=== PATIENT | male | born 1950 | race Caucasian/White ===

== ENCOUNTER 2023-12-14 17:12 | Inpatient (IN) | payer MEDICARE, MEDICAID ==
[~2023-12-14] VITALS: Ht 162.6 cm; Wt 64.0 kg
[~2023-12-14 17:12] MED LIST: ATOR40TA70 PO; BENA40TA91 PO; HYDR25TA PO
[2023-12-14] MEDS: SODIUM CHLORIDE 0.9% 1000ML BAG (SEPSIS BOLUS) IV ONE (17:49)
[2023-12-14] MEDS: VANCOMYCIN 1G PREMIX 200 ML IV ONE (18:10)
[2023-12-14] MEDS: PIPERACILLIN/TAZO 3.375G/50ML 50 ML IV ONE (18:10)
[2023-12-14] MEDS: ACETAMINOPHEN 325MG TABLET PO ONE (18:12)
[2023-12-14 18:17] LABS: DIFFERENTIAL COMMENT 1; HEMATOCRIT. 36.3 % (42.0-52.0); HEMOGLOBIN. 11.3 g/dL (14.0-18.0); MEAN CORPUSCULAR HEMOGLOBIN 29.9 pg (28.0-32.0); MEAN CORPUSCULAR HGB CONC 31.2 g/dL (31.0-37.0); MEAN CORPUSCULAR VOLUME 95.6 fL (80.0-94.0); MEAN PLATELET VOLUME 8.3 fl (7.4-10.4); PLATELET 114 x1000/uL (130-400); RED BLOOD CELL COUNT 3.79 mill/uL (4.7-6.1); RED CELL DISTRIBUTION WIDTH 21.1 % (11.6-14.6); WHITE BLOOD COUNT 12.2 x1000/uL (4.5-11.0)
[2023-12-14 18:21] LABS: CHLORIDE 96 mEq/L (98-107); POTASSIUM 3.5 mEq/L (3.5-5.1); SODIUM 132 mEq/L (136-145)
[2023-12-14 18:22] LABS: CALCIUM 8.6 mg/dL (8.7-10.4); CARBON DIOXIDE 28 mEq/L (21-32)
[2023-12-14 18:27] LABS: GLUCOSE 161 mg/dL (70-105); UREA NITROGEN BLOOD 41 mg/dL (9-23)
[2023-12-14 18:28] LABS: TROPONIN I HIGH SENSITIVITY 39 ng/L (3.0-53)
[2023-12-14 18:29] LABS: ALANINE AMINOTRANSFERASE 15 IU/L (10-49); ALBUMIN 3.3 g/dL (3.2-4.8); ASPARTATE AMINOTRANSFERASE 27 IU/L (<34); BILIRUBIN TOTAL 0.5 mg/dL (0.1-1.0)
[2023-12-14 18:34] LABS: CREATININE 6.7 mg/dL (0.6-1.3)
[2023-12-14 18:49] LABS: INR 1.2; PROTHROMBIN TIME 12.7 sec (9.6-11.0)
[2023-12-14 19:46] LABS: ANISOCYTOSIS 2+; PLATELET ESTIMATE DECREASED
[2023-12-14] MEDS ORDERED: NA PHOS,M-B/NA PHOS,DI-BA ENEMA 118ML PR PRN (23:30)
[2023-12-14] MEDS ORDERED: IPRATROPIUM/ALBUTEROL 0.5-3(2.5)MG/3ML NEB HHN PRN (23:30)
[2023-12-14] MEDS ORDERED: MAGNESIUM/ALUMINUM HYDROXIDE/SIMETHICONE 30ML UDC PO PRN (23:30)
[2023-12-14] MEDS ORDERED: ACETAMINOPHEN 325MG TABLET PO PRN (23:30)
[2023-12-15] VITALS (16 sets, daily range): BP systolic 115–147; BP diastolic 48–80; PULSE 78–110; RESP 16–20; TEMP 36.28068–37.00296; O2SAT 92–99
[2023-12-15] MEDS: HYDROCODONE/ACETAMINOPHEN 5/325MG TABLET PO PRN (03:50)
[2023-12-15] MEDS ORDERED: DEXTROSE 50% WATER 50ML SYRINGE IV PRN (04:15)
[2023-12-15 05:24] LABS: HEMATOCRIT. 34.7 % (42.0-52.0); HEMOGLOBIN. 11.1 g/dL (14.0-18.0); MEAN CORPUSCULAR HEMOGLOBIN 29.8 pg (28.0-32.0); MEAN CORPUSCULAR VOLUME 93.1 fL (80.0-94.0); MEAN PLATELET VOLUME 8.7 fl (7.4-10.4); PLATELET 97 x1000/uL (130-400); RED BLOOD CELL COUNT 3.73 mill/uL (4.7-6.1); RED CELL DISTRIBUTION WIDTH 20.6 % (11.6-14.6); WHITE BLOOD COUNT 14.9 x1000/uL (4.5-11.0)
[2023-12-15] MEDS: CLINDAMYCIN 600MG PREMIX 50 ML IV SCH (05:34)
[2023-12-15] MEDS: LEVOFLOXACIN 750MG PREMIX 150 ML IV NR (05:35)
[2023-12-15] MEDS: BLOOD SUGAR DIAGNOSTIC STRIP TEST SCH (05:35)
[2023-12-15 05:53] LABS: DIFFERENTIAL COMMENT 1
[2023-12-15 05:59] LABS: CALCIUM 9.1 mg/dL (8.7-10.4); CARBON DIOXIDE 26 mEq/L (21-32); CHLORIDE 97 mEq/L (98-107); POTASSIUM 4.2 mEq/L (3.5-5.1); SODIUM 133 mEq/L (136-145)
[2023-12-15 06:02] LABS: TROPONIN I HIGH SENSITIVITY 41 ng/L (3.0-53)
[2023-12-15 06:04] LABS: ALBUMIN 3.2 g/dL (3.2-4.8)
[2023-12-15 06:05] LABS: GLUCOSE 75 mg/dL (70-105); TRIGLYCERIDE 76 mg/dL (0-150); UREA NITROGEN BLOOD 44 mg/dL (9-23)
[2023-12-15 06:06] LABS: LDL CHOLESTEROL 17 mg/dL (5-100)
[2023-12-15 06:07] LABS: CHOLESTEROL 65 mg/dL (<200); HDL CHOLESTEROL 26 mg/dL (>55)
[2023-12-15 06:16] LABS: CREATININE 7.4 mg/dL (0.6-1.3)
[2023-12-15] MEDS: INSULIN LISPRO 100 UNITS/ML SUBCUT SCH (06:25)
[2023-12-15] MEDS ORDERED: LEVOFLOXACIN 750MG PREMIX 150 ML IV NR (06:30)
[2023-12-15 08:29] LABS: ALANINE AMINOTRANSFERASE 18 IU/L (10-49); ALBUMIN 3.2 g/dL (3.2-4.8); ASPARTATE AMINOTRANSFERASE 35 IU/L (<34); BILIRUBIN DIRECT 0.3 mg/dL (<=3.0); BILIRUBIN TOTAL 0.5 mg/dL (0.1-1.0); PHOSPHORUS 4.2 mg/dL (2.5-4.9); PROTEIN TOTAL 6.9 g/dL (6.0-8.3)
[2023-12-15 08:42] LABS: FOLIC ACID (FOLATE) SERUM > 20.00 ng/mL (>5.38)
[2023-12-15 08:43] LABS: FERRITIN 1054 ng/mL (22-322); VITAMIN B12 SERUM 849 pg/mL (211-911)
[2023-12-15] MEDS: CARVEDILOL 3.125 MG TABLET PO SCH (09:00)
[2023-12-15] MEDS: ASPIRIN 81MG TABLET PO SCH (09:00)
[2023-12-15] MEDS: APIXABAN 5 MG TABLET PO SCH (09:35)
[2023-12-15] MEDS: ENOXAPARIN 30MG/0.3ML SYR SUBCUT SCH (09:35)
[2023-12-15] MEDS: PANTOPRAZOLE SODIUM 40 MG/VIAL IV SCH (09:37)
[2023-12-15] MEDS: ACETAMINOPHEN 325MG TABLET PO PRN (12:27)
[2023-12-15 12:50] LABS: HEPATITIS B SURFACE ANTIGEN NEGATIVE (Negative)
[2023-12-15 13:11] LABS: HEPATITIS A AB IGM NEGATIVE (Negative)
[2023-12-15 13:12] LABS: HEPATITIS B CORE AB IGM REACTIVE (Negative); HEPATITIS C AB NON REACTIVE (Neg) (Negative)
[2023-12-15 14:08] LABS: CLARITY URINE TURBID (CLEAR); COLOR URINE DARK YELLOW (YELLOW); GLUCOSE URINE NEGATIVE (NEGATIVE); KETONES URINE NEGATIVE (NEGATIVE); LEUKOCYTE ESTERASE URINE 3+ (NEGATIVE); NITRITE URINE NEGATIVE (NEGATIVE); OCCULT BLOOD URINE 2+ (NEGATIVE); PH URINE 7.5 (4.5-8.0); PROTEIN URINE 3+ (NEGATIVE); SPECIFIC GRAVITY URINE 1.021 (1.005-1.030); UROBILINOGEN URINE 0.2 E.U./dL (0.2-1.0)
[2023-12-15 14:25] LABS: SQUAMOUS EPITHELIAL CELL URINE RARE /lpf (RARE/1+)
[2023-12-15 14:26] LABS: BACTERIA URINE 2+; WBC URINE TNTC /hpf (0-2)
[2023-12-15 14:27] LABS: RBC URINE 0-2 /hpf (0-2)
[2023-12-15 14:50] LABS: *AMPHETAMINES SCREEN URINE NEGATIVE (NEGATIVE); *BARBITURATES SCREEN URINE NEGATIVE (NEGATIVE); *BENZODIAZEPINES SCREEN URINE NEGATIVE (NEGATIVE); *COCAINE SCREEN URINE NEGATIVE (NEGATIVE); CANNABINOID URINE SCREEN NEGATIVE (NEGATIVE); ECSTASY MDMA SCREEN URINE NEGATIVE (NEGATIVE); METHADONE URINE SCREEN NEGATIVE (NEGATIVE); OPIATES URINE SCREEN NEGATIVE (NEGATIVE); PHENCYCLIDINE URINE SCREEN NEGATIVE (NEGATIVE)
[2023-12-15 16:09] LABS: PLATELET ESTIMATE SLIGHTLY DECREASED
[2023-12-15 18:54] LABS: TROPONIN I HIGH SENSITIVITY 34 ng/L (3.0-53)
[2023-12-15] MEDS ORDERED: CEFEPIME 2GM IN DEXT 5% 100ML IV SCH (20:45)
[2023-12-15] MEDS ORDERED: NALOXONE HCL 0.4MG/ML VIAL IV PRN (20:45)
[2023-12-15] MEDS: VANCOMYCIN 500MG/100ML IV NR (20:58)
[2023-12-15] MEDS: CEFEPIME 2GM/100ML 100 ML IV SCH (22:48)
[2023-12-15] MEDS: CLONIDINE 0.1MG TABLET PO PRN (23:18)
[2023-12-15] MEDS ORDERED: LEVO25TA7 PO (23:34)
[2023-12-15] MEDS ORDERED: KETO5DRO38 EACHEYE (23:40)
[2023-12-15] MEDS ORDERED: BRIM5DRO31 EACHEYE (23:40)
[2023-12-15] MEDS ORDERED: ISOS20TA8 PO (23:40)
[2023-12-16] VITALS: BP 163/73; PULSE 108; RESP 18; TEMP 36.6696; O2SAT 96
[2023-12-16 04:00] VITALS: BP 120/55; PULSE 101; RESP 20; TEMP 36.55848; O2SAT 90
[2023-12-16 07:31] LABS: CARBON DIOXIDE 25 mEq/L (21-32); CHLORIDE 99 mEq/L (98-107); POTASSIUM 4.3 mEq/L (3.5-5.1); SODIUM 134 mEq/L (136-145)
[2023-12-16 07:32] LABS: CALCIUM 9.1 mg/dL (8.7-10.4)
[2023-12-16 07:36] LABS: GLUCOSE 111 mg/dL (70-105)
[2023-12-16 07:37] LABS: UREA NITROGEN BLOOD 44 mg/dL (9-23)
[2023-12-16 07:40] LABS: PHOSPHORUS 4.3 mg/dL (2.5-4.9)
[2023-12-16 07:44] LABS: CREATININE 6.7 mg/dL (0.6-1.3)
[2023-12-16 08:00] VITALS: BP 105/76; PULSE 88; RESP 18; TEMP 36.50292; O2SAT 97
[2023-12-16 08:00] LABS: HEMATOCRIT. 36.2 % (42.0-52.0); HEMOGLOBIN. 11.2 g/dL (14.0-18.0); MEAN CORPUSCULAR HEMOGLOBIN 29.7 pg (28.0-32.0); MEAN CORPUSCULAR VOLUME 95.7 fL (80.0-94.0); MEAN PLATELET VOLUME 9.1 fl (7.4-10.4); PLATELET 101 x1000/uL (130-400); RED BLOOD CELL COUNT 3.78 mill/uL (4.7-6.1); RED CELL DISTRIBUTION WIDTH 21.3 % (11.6-14.6); WHITE BLOOD COUNT 11.5 x1000/uL (4.5-11.0)
[2023-12-16 08:11] LABS: DIFFERENTIAL COMMENT 1
[2023-12-16 12:00] VITALS: BP 128/48; PULSE 87; RESP 18; TEMP 36.6696; O2SAT 97
[2023-12-16] MEDS: DOCUSATE SODIUM 100MG CAPSULE PO PRN (13:13)
[2023-12-16 15:26] LABS: ANISOCYTOSIS 3+; PLATELET ESTIMATE DECREASED
[2023-12-16 16:00] VITALS: BP 104/39; PULSE 79; RESP 18; TEMP 35.89176; O2SAT 100
[2023-12-16 20:00] VITALS: BP 121/83; PULSE 85; RESP 20; TEMP 36.22512; O2SAT 93
[2023-12-16] MEDS: GUAIFENESIN 200MG/10ML SUGAR FREE UDC PO PRN (21:14)
[2023-12-16] MEDS: CEFEPIME 1GM/50ML 50 ML IV SCH (21:15)
[2023-12-17] VITALS (8 sets, daily range): BP systolic 112–135; BP diastolic 48–77; PULSE 74–98; RESP 18–20; TEMP 36.114–36.72516; O2SAT 91–98
[2023-12-17] MEDS ORDERED: LEVOFLOXACIN 500MG PREMIX 150 ML IV SCH (06:30)
[2023-12-17 07:24] LABS: HEMATOCRIT. 36.7 % (42.0-52.0); HEMOGLOBIN. 11.6 g/dL (14.0-18.0); MEAN CORPUSCULAR HEMOGLOBIN 29.5 pg (28.0-32.0); MEAN CORPUSCULAR HGB CONC 31.6 g/dL (31.0-37.0); MEAN CORPUSCULAR VOLUME 93.1 fL (80.0-94.0); MEAN PLATELET VOLUME 9.9 fl (7.4-10.4); PLATELET 90 x1000/uL (130-400); RED BLOOD CELL COUNT 3.95 mill/uL (4.7-6.1); RED CELL DISTRIBUTION WIDTH 21.7 % (11.6-14.6); WHITE BLOOD COUNT 8.6 x1000/uL (4.5-11.0)
[2023-12-17 07:29] LABS: CARBON DIOXIDE 22 mEq/L (21-32); CHLORIDE 94 mEq/L (98-107); POTASSIUM 4.4 mEq/L (3.5-5.1); SODIUM 129 mEq/L (136-145)
[2023-12-17 07:30] LABS: CALCIUM 9.6 mg/dL (8.7-10.4)
[2023-12-17 07:34] LABS: GLUCOSE 189 mg/dL (70-105)
[2023-12-17 07:35] LABS: UREA NITROGEN BLOOD 50 mg/dL (9-23)
[2023-12-17 08:17] LABS: DIFFERENTIAL COMMENT 1
[2023-12-17] MEDS: GUAIFENESIN 200MG/10ML SUGAR FREE UDC PO SCH (20:46)
[2023-12-17] MEDS: VANCOMYCIN 500MG PREMIX 100 ML IV SCH (20:55)
[2023-12-18] VITALS: BP 132/68; PULSE 78; RESP 18; TEMP 36.55848; O2SAT 98
[2023-12-18 04:13] VITALS: BP 144/57; PULSE 78; RESP 18; TEMP 36.55848; O2SAT 98
[2023-12-18 08:00] VITALS: BP 155/78; PULSE 95; RESP 19; TEMP 36.6696; O2SAT 97
[2023-12-18 12:00] VITALS: BP 150/78; PULSE 90; RESP 18; TEMP 36.44736; O2SAT 98
[2023-12-18 15:23] LABS: ANISOCYTOSIS 3+; PLATELET ESTIMATE DECREASED
[2023-12-18 16:00] VITALS: BP 148/81; PULSE 88; RESP 18; TEMP 36.55848; O2SAT 98
[2023-12-18 20:00] VITALS: BP 146/78; PULSE 78; RESP 19; TEMP 36.44736; O2SAT 97
[2023-12-19] VITALS: BP 138/66; PULSE 76; RESP 18; TEMP 36.6696; O2SAT 98
[2023-12-19 04:00] VITALS: BP 144/64; PULSE 82; RESP 18; TEMP 36.78072; O2SAT 96
[2023-12-19 08:00] VITALS: BP 157/55; PULSE 93; RESP 18; TEMP 36.78072; O2SAT 97
[2023-12-19 12:00] VITALS: BP 154/52; PULSE 92; RESP 18; TEMP 36.61404; O2SAT 98
[2023-12-19 16:00] VITALS: BP 186/72; PULSE 82; RESP 18; TEMP 36.55848; O2SAT 100
[2023-12-19 20:00] VITALS: BP 148/56; PULSE 78; RESP 16; TEMP 36.6696; O2SAT 98
[2023-12-20] VITALS (13 sets, daily range): BP systolic 122–180; BP diastolic 52–86; PULSE 75–92; RESP 18–19; TEMP 35.94732–36.78072; O2SAT 97–99
[2023-12-20] MEDS: BENZONATATE 100MG CAPSULE PO PRN (21:39)
[2023-12-21] VITALS: BP 146/61; PULSE 88; RESP 18; TEMP 36.44736; O2SAT 97
[2023-12-21] MEDS: ONDANSETRON HCL 4MG/2ML INJ IV PRN (02:47)
[2023-12-21 04:00] VITALS: BP 139/68; PULSE 88; RESP 18; TEMP 36.55848; O2SAT 97
[2023-12-21 08:00] VITALS: BP 136/49; PULSE 74; RESP 18; TEMP 36.72516; O2SAT 100
[2023-12-21 12:00] VITALS: BP 140/85; PULSE 82; RESP 18; TEMP 35.89176; O2SAT 98
[2023-12-21] MEDS ORDERED: TETRACAINE/BENZOCAINE/BUTAMBEN 20 GM SPRAY MM ONE (14:18)
[2023-12-21] MEDS ORDERED: LIDOCAINE 2% 6ML GLYDO MM ONE (14:18)
[2023-12-21] MEDS ORDERED: FENTANYL CITRATE/PF 50MCG/ML 2ML VIAL ONE (14:41)
[2023-12-21] MEDS ORDERED: MIDAZOLAM HCL 2 MG/2 ML VIAL ONE (14:42)
[2023-12-21 18:00] VITALS: BP 142/77; PULSE 85; RESP 20; TEMP 36.22512; O2SAT 98
[2023-12-21 20:00] VITALS: BP 137/65; PULSE 67; RESP 18; TEMP 37.00296; O2SAT 99
[2023-12-22] VITALS (15 sets, daily range): BP systolic 126–171; BP diastolic 52–85; PULSE 74–89; RESP 16–19; TEMP 36.3918–37.33632; O2SAT 94–100
[2023-12-23] VITALS: BP 112/43; PULSE 97; RESP 17; TEMP 35.72508; O2SAT 97
[2023-12-23 04:00] VITALS: BP 141/68; PULSE 88; RESP 19; TEMP 36.72516; O2SAT 97
[2023-12-23 08:15] VITALS: BP 172/66; PULSE 98; RESP 18; TEMP 36.78072; O2SAT 97
[2023-12-23] MEDS ORDERED: LIDOCAINE HCL 1% 10 MG/ML 10ML VIAL ONE (09:14)
[2023-12-23] MEDS ORDERED: COR3 PO ×2 (12:19→13:13)
[2023-12-23 12:20] VITALS: BP 176/58; PULSE 86; RESP 18; TEMP 36.89184
[2023-12-23 13:13] VITALS: BP 158/58; PULSE 78; TEMP 98.4; O2SAT 98
[2023-12-23 13:40] LABS: HEMATOCRIT. 31.7 % (42.0-52.0); HEMOGLOBIN. 10.2 g/dL (14.0-18.0); MEAN CORPUSCULAR HEMOGLOBIN 30.1 pg (28.0-32.0); MEAN CORPUSCULAR HGB CONC 32.2 g/dL (31.0-37.0); MEAN CORPUSCULAR VOLUME 93.6 fL (80.0-94.0); MEAN PLATELET VOLUME 8.8 fl (7.4-10.4); PLATELET 141 x1000/uL (130-400); RED BLOOD CELL COUNT 3.39 mill/uL (4.7-6.1); RED CELL DISTRIBUTION WIDTH 22.1 % (11.6-14.6); WHITE BLOOD COUNT 6.5 x1000/uL (4.5-11.0)
[2023-12-23 13:54] LABS: DIFFERENTIAL COMMENT 1; POTASSIUM 4.4 mEq/L (3.5-5.1)
[2023-12-23 13:56] VITALS: PULSE 78
[2023-12-23] MEDS: ISOSORBIDE DINITRATE 20MG TABLET PO SCH (13:56)
[2023-12-23 14:02] LABS: CREATININE 8.6 mg/dL (0.6-1.3)
[2023-12-23 18:52] LABS: ANISOCYTOSIS 2+; PLATELET ESTIMATE NORMAL
[2023-12-23] MEDS ORDERED: ATORVASTATIN CALCIUM 40MG TABLET PO SCH (21:00)
[2023-12-24] MEDS ORDERED: LEVOTHYROXINE SODIUM 25MCG TABLET PO SCH (07:10)
[2023-12-24] MEDS ORDERED: HYDROCHLOROTHIAZIDE 25MG TABLET PO SCH (09:00)
== END 2023-12-23 15:38 | disposition home health service (06) | DRG 871 ==
LOC: ER 17:12 → EDBEDREQTM 20:10 → EDBEDREQ 20:10 → 5WST 21:11 → 8WST 12-15 00:40
PROVIDERS: ADMIT Internal Medicine; ATTEND Internal Medicine
PROC: 5A1D70Z Performance of Urinary Filtration, Intermittent, Less than 6 Hours Per Day (ICD-10-PCS; principal; 2023-12-15)
PROC: 5A1D70Z Performance of Urinary Filtration, Intermittent, Less than 6 Hours Per Day (ICD-10-PCS; 2023-12-17)
PROC: 5A1D70Z Performance of Urinary Filtration, Intermittent, Less than 6 Hours Per Day (ICD-10-PCS; 2023-12-20)
PROC: B246ZZ4 Ultrasonography of Right and Left Heart, Transesophageal (ICD-10-PCS; 2023-12-21)
PROC: 5A1D70Z Performance of Urinary Filtration, Intermittent, Less than 6 Hours Per Day (ICD-10-PCS; 2023-12-22)
DX: A41.01 Sepsis due to Methicillin susceptible Staphylococcus aureus (principal); J15.1 Pneumonia due to Pseudomonas; N18.6 End stage renal disease; N39.0 Urinary tract infection, site not specified; I13.2 Hypertensive heart and chronic kidney disease with heart failure and with stage 5 chronic kidney disease, or end stage renal disease; D61.818 Other pancytopenia; D84.9 Immunodeficiency, unspecified; E87.1 Hypo-osmolality and hyponatremia; I50.40 Unspecified combined systolic (congestive) and diastolic (congestive) heart failure; D53.9 Nutritional anemia, unspecified; E78.5 Hyperlipidemia, unspecified; E03.9 Hypothyroidism, unspecified; Z20.822 Contact with and (suspected) exposure to COVID-19; E11.22 Type 2 diabetes mellitus with diabetic chronic kidney disease; E11.65 Type 2 diabetes mellitus with hyperglycemia; F41.9 Anxiety disorder, unspecified; I25.10 Atherosclerotic heart disease of native coronary artery without angina pectoris; I48.0 Paroxysmal atrial fibrillation; C44.229 Squamous cell carcinoma of skin of left ear and external auricular canal; Z79.01 Long term (current) use of anticoagulants; Z79.82 Long term (current) use of aspirin; Z79.84 Long term (current) use of oral hypoglycemic drugs; Z79.899 Other long term (current) drug therapy; Z85.828 Personal history of other malignant neoplasm of skin; Z86.73 Personal history of transient ischemic attack (TIA), and cerebral infarction without residual deficits; Z92.3 Personal history of irradiation; Z95.1 Presence of aortocoronary bypass graft; Z98.61 Coronary angioplasty status; Z99.2 Dependence on renal dialysis; Z99.81 Dependence on supplemental oxygen
CPT/HCPCS: 36415; 71045; 80048; 80053; 80061; 80076; 80202; 80305; 81003; 82040; 82607; 82728; 82746; 82962; 83036; 83605; 83735; 83880; 84100; 84145; 84443; 84484; 85025; 86705; 86709; 87070; 87077; 87186; 87340; 87426; 90935; 92610; 93005; 93306; 97162; 97167; 99285; C1893; J0692; J1650; J1815; J1956; J2250; J2405; J2470; J2543; J3010; J3370; J3490; J7030